=== PATIENT | female | born 2000 | race Caucasian/White ===

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

== ENCOUNTER 2024-11-06 17:17 | Emergency (ER) | payer OTHER ==
[2024-11-06 17:26] VITALS: RESP 16
--- NOTE | 2024-11-06 17:36 | ED ---
Extremity Problem HPI - General Chief complaint: Extremity Problem,Nontraumatic Stated complaint: l leg tingling Time Seen by Provider: 11/06/24 17:28 Source: patient Mode of arrival: ambulatory Limitations: no limitations - History of Present Illness Initial comments: 24-year-old female presenting with chief complaint of swelling in the left leg. Patient states that symptoms have been ongoing for about a week. She reports that she is currently sleeping in her car and she notices that it is at its worst when she wakes up in the morning. She also has some pain and tingling in the leg as well. States that it feels like the swelling is starting to come up the leg and is now in her upper thigh. She denies any chest pain or difficulty breathing. She does not take oral contraceptives. She denies any injury or trauma. She reports that 1 night she slept in a tent and was laying flat and this seemed to help her swelling more. She has having some lower back pain which is chronic for her. - Related Data Home Medications Medication Instructions Recorded Confirmed Cetirizine HCl 10 mg PO DAILY 08/12/16 08/27/17 OXcarbazepine [Trileptal] 150 mg PO BID 08/27/17 08/27/17 Omeprazole [PriLOSEC] 20 mg PO AC-BRKFST 08/27/17 08/27/17 buPROPion HCL [Wellbutrin XL] 300 mg PO DAILY 08/27/17 08/27/17 Previous Rx's Medication Instructions Recorded Ciprofloxacin HCl [Cipro] 500 mg PO Q12HR #20 tablet 08/27/17 Apixaban [Eliquis Starter Pack 5 - 10 mg PO DIRECTED 30 Days 11/06/24 (for VTE)] #1 each Allergies Allergy/AdvReac Type Severity Reaction Status Date / Time montelukast [From Singulair] Allergy Unknown Verified 12/27/19 15:55 Penicillins Allergy Rash/Hives Verified 12/27/19 15:55 prednisone Allergy Rapid Verified 12/27/19 15:55 Heart Rate Sulfa (Sulfonamide Allergy Rash/Hives Verified 12/27/19 15:55 Antibiotics) sulfamethoxazole Allergy Rash/Hives Verified 12/27/19 15:55 [From Bactrim] trimethoprim [From Bactrim] Allergy Rash/Hives Verified 12/27/19 15:55 Review of Systems ROS Statement: Those systems with pertinent positive or pertinent negative responses have been documented in the HPI. ROS Other: All systems not noted in ROS Statement are negative. Past Medical History Past Medical History: No Reported History Additional Past Medical History / Comment(s): factor 5 History of Any Multi-Drug Resistant Organisms: None Reported Past Surgical History: No Surgical Hx Reported Additional Past Surgical History / Comment(s): toe surgery Past Psychological History: Anxiety, Depression Smoking Status: Never smoker Past Alcohol Use History: None Reported Past Drug Use History: Marijuana General Exam Limitations: no limitations General appearance: alert, in no apparent distress Head exam: Present: atraumatic, normocephalic, normal inspection Eye exam: Present: normal appearance, EOMI Neck exam: Present: normal inspection. Absent: meningismus Respiratory exam: Absent: respiratory distress Cardiovascular Exam: Present: regular rate Extremities exam: Present: normal capillary refill, pedal edema (Left-sided mild 1+) Neurological exam: Present: alert, oriented X3 Psychiatric exam: Present: normal affect, normal mood Skin exam: Present: warm, dry, normal color Course Vital Signs 11/06/24 11/06/24 17:24 19:10 Temperature 98.3 F 98.1 F Pulse Rate 88 80 Respiratory 16 16 Rate Blood Pressure 149/92 142/89 O2 Sat by Pulse 100 100 Oximetry Medical Decision Making - Medical Decision Making Was pt. sent in by a medical professional or institution (, PA, PROFILING MACHINE SET UP OPERATOR, urgent care, hospital, or [facility]...) When possible be specific @ -No Did you speak to anyone other than the patient for history (EMS, parent, family, police, friend...)? What history was obtained from this source @ -No Did you review nursing and triage notes (agree or disagree)? Why? @ -I reviewed and agree with nursing and triage notes Were old charts reviewed (outside hosp., previous admission, EMS record, old EKG, old radiological studies, urgent care reports/EKG's, [facility] records)? Report findings @ -No old charts were reviewed Differential Diagnosis (chest pain, altered mental status, abdominal pain women, abdominal pain men, vaginal bleeding, weakness, fever, dyspnea, syncope, headache, dizziness, GI bleed, back pain, seizure, CVA, palpatations, mental health, musculoskeletal)? @ -Differential Musculoskeletal Muscular strain, contusion, ligament sprain, fracture, arthritis, septic arthritis, bursitis, cellulitis, muscle spasm, nerve compression, DVT, arterial occlusion, herpes zoster, electrolyte abnormality, tumor.... This is not meant to be in all inclusive list EKG interpreted by me (3pts min.). @ -As above X-rays interpreted by me (1pt min.). @ -None done CT interpreted by me (1pt min.). @ -None done U/S interpreted by me (1pt. min.). @ -Ultrasound shows acute DVT within the mid to distal left popliteal vein and one of the proximal calf veins What testing was considered but not performed or refused? (CT, X-rays, U/S, labs)? Why? @ -None What meds were considered but not given or refused? Why? @ -None Did you discuss the management of the patient with other professionals (professionals i.e. , PA, PROFILING MACHINE SET UP OPERATOR, lab, RT, psych nurse, social media campaign manager, tax lawyer, teacher, financial aid officer, complex case manager)? Give summary @ -No Was smoking cessation discussed for >3mins.? @ -No Was critical care preformed (if so, how long)? @ -No Were there social determinants of health that impacted care today? How? (Homelessness, low income, unemployed, alcoholism, drug addiction, transportation, low edu. Level, literacy, decrease access to med. care, retirement, rehab)? @ -No Was there de-escalation of care discussed even if they declined (Discuss DNR or withdrawal of care, Hospice)? DNR status @ -No What co-morbidities impacted this encounter? (DM, HTN, Smoking, COPD, CAD, Cancer, CVA, ARF, Chemo, Hep., AIDS, mental health diagnosis, sleep apnea, morb id obesity)? @ -None Was patient admitted / discharged? Hospital course, mention meds given and route, prescriptions, significant lab abnormalities, going to OR and other pertinent info. @ -24-year-old female with history of factor V Leiden. Patient reports that she is currently homeless and sleeping in her car. She has been having swelling to the left leg for about a week. No chest pain or difficulty breathing. She is neurovascularly intact. Ultrasound positive for DVT. Patient is not currently on any blood thinners. She will be started on Eliquis, first dose of 10 mg is given here in the ER, starter pack sent to the pharmacy. She recently was assigned PCP Dr. Sauceda and will be following up with her. Educated on alarm symptoms that should prompt reevaluation. Follow-up with PCP. Report back to ER with any new or worsening symptoms. Discussed return parameters and answered all questions. Patient conveyed verbal understanding and agreed to the plan. I discussed this case in detail with my attending Dr. Paredes Undiagnosed new problem with uncertain prognosis? @ -No Drug Therapy requiring intensive monitoring for toxicity (Heparin, Nitro, Insulin, Cardizem)? @ -No Were any procedures done? @ -No Diagnosis/symptom? @ -DVT Acute, or Chronic, or Acute on Chronic? @ -Acute Uncomplicated (without systemic symptoms) or Complicated (systemic symptoms)? @ -Uncomplicated Side effects of treatment? @ -No Exacerbation, Progression, or Severe Exacerbation? @ -No Poses a threat to life or bodily function? How? (Chest pain, [place], NH, pneumonia, PE, COPD, DKA, ARF, appy, cholecystitis, CVA, Diverticulitis, Homicidal, Suicidal, threat to staff... and all critical care pts) @ -There is potential for DVT to result in PE, patient is educated on signs and symptoms of PE that should prompt reevaluation Disposition Clinical Impression: Deep vein thrombosis (DVT) of lower extremity Disposition: HOME SELF-CARE Condition: Fair Instructions (If sedation given, give patient instructions): Deep Vein Thrombosis (ED) Additional Instructions: Follow-up with your PCP. Report back to ER with any new or worsening symptoms, including but not limited to chest pain, difficulty breathing, dizziness/passing out. Take your medication as prescribed Prescriptions: Apixaban [Eliquis Starter Pack (for VTE)] 5 - 10 mg PO DIRECTED 30 Days #1 each Is patient prescribed a controlled substance at d/c from ED?: No Referrals: None,Stated [Primary Care Provider] - 1-2 days Aimee Sauceda MD [STAFF PHYSICIAN] - 1-2 days Time of Disposition: 19:00
--- NOTE | 2024-11-06 18:13 | US ---
EXAMINATION TYPE: US venous doppler duplex LE LT DATE OF EXAM: 11/07/23 COMPARISON: NONE CLINICAL INDICATION: Female, 24 years old with history of swelling. pain and swelling in calf for domenico und 1.5 weeks. not on thinners no hx dvt SIDE PERFORMED: Left TECHNIQUE: The lower extremity deep venous system is examined utilizing real time linear array sonog juli with graded compression, doppler sonography and color-flow sonography. VESSELS IMAGED: Common Femoral Vein Deep Femoral Vein Greater Saphenous Vein * Femoral Vein Popliteal Vein Small Saphenous Vein * Proximal Calf Veins (* superficial vessels) Left Leg: echoes with non-compressibility seen within the mid and distal popliteal vein and 1 of the proximal calf veins. There is normal compressibility with color flow and spectral venous waveforms i nvolving the remaining visualized left lower extremity veins. IMPRESSION: Acute deep venous thrombosis within the mid to distal left popliteal vein and one of the proximal keila f veins. Findings communicated to Dr. Jone Kaba, PAC on 11/06/2024 6:[address] Stephan Odom . [facility], , 11/06/2024 6:11 PM
[2024-11-06] MEDS: APIXABAN 5 MG TAB PO STA (19:01)
[2024-11-06 19:11] VITALS: BP 142/89; PULSE 80; TEMP 98.1
== END 2024-11-06 19:57 | disposition home or self-care (01) ==
LOC: EC 17:17
DX: I82.402 Acute embolism and thrombosis of unspecified deep veins of left lower extremity (principal); Z88.0 Allergy status to penicillin; Z88.1 Allergy status to other antibiotic agents; Z88.2 Allergy status to sulfonamides; Z88.8 Allergy status to other drugs, medicaments and biological substances; Z59.00 Homelessness unspecified
CPT/HCPCS: 99284

== ENCOUNTER 2024-11-12 09:25 | Emergency (ER) | payer OTHER ==
[2024-11-12 09:33] VITALS: BP 130/85; PULSE 85; RESP 18; TEMP 97.9
[2024-11-12 10:01] LABS: Bilirubin,Urine Negative (Negative); Blood,Urine Negative (Negative); Color,Urine Colorless; Glucose,Urine (UA) Negative (Negative); Ketones,Urine Negative (Negative); Leukocyte Esterase,Urine Negative (Negative); Nitrite,Urine Negative (Negative); PH, Urine 6.0 (5.0-8.0); Protein,Urine Negative (Negative); Specific Gravity,Urine 1.007 (1.001-1.035); Urobilinogen,Urine <2.0 mg/dL (<2.0)
--- NOTE | 2024-11-12 10:06 | ED ---
Female Urogenital HPI - General Chief complaint: Urogenital Stated complaint: possible /urogenital issues Time Seen by Provider: 11/12/24 09:35 Source: patient, family, RN notes reviewed Mode of arrival: ambulatory Limitations: no limitations - History of Present Illness Initial comments: This is a 24-year-old female who presents to the emergency department for a test. Patient states that she is 3 days late on her period and would like to make sure she is not . Due to financial constraints she is not able to purchase a test at any drugstore. Denies any history of prior pregnancies. - Related Data Home Medications Medication Instructions Recorded Confirmed Cetirizine HCl 10 mg PO DAILY 08/12/16 08/27/17 OXcarbazepine [Trileptal] 150 mg PO BID 08/27/17 08/27/17 Omeprazole [PriLOSEC] 20 mg PO AC-BRKFST 08/27/17 08/27/17 buPROPion HCL [Wellbutrin XL] 300 mg PO DAILY 08/27/17 08/27/17 Previous Rx's Medication Instructions Recorded Ciprofloxacin HCl [Cipro] 500 mg PO Q12HR #20 tablet 08/27/17 Apixaban [Eliquis Starter Pack 5 - 10 mg PO DIRECTED 30 Days 11/06/24 (for VTE)] #1 each Allergies Allergy/AdvReac Type Severity Reaction Status Date / Time montelukast [From Singulair] Allergy Unknown Verified 11/12/24 09:33 Penicillins Allergy Rash/Hives Verified 11/12/24 09:33 prednisone Allergy Rapid Verified 11/12/24 09:33 Heart Rate Sulfa (Sulfonamide Allergy Rash/Hives Verified 11/12/24 09:33 Antibiotics) sulfamethoxazole Allergy Rash/Hives Verified 11/12/24 09:33 [From Bactrim] trimethoprim [From Bactrim] Allergy Rash/Hives Verified 11/12/24 09:33 Review of Systems ROS Statement: Those systems with pertinent positive or pertinent negative responses have been documented in the HPI. ROS Other: All systems not noted in ROS Statement are negative. Past Medical History Past Medical History: No Reported History Additional Past Medical History / Comment(s): factor 5 History of Any Multi-Drug Resistant Organisms: None Reported Past Surgical History: No Surgical Hx Reported Additional Past Surgical History / Comment(s): toe surgery Past Psychological History: Anxiety, Depression Smoking Status: Vaper Past Alcohol Use History: None Reported Past Drug Use History: Marijuana General Exam Limitations: no limitations General appearance: alert, in no apparent distress Head exam: Present: atraumatic, normocephalic, normal inspection Respiratory exam: Present: normal lung sounds bilaterally. Absent: respiratory distress, wheezes, rales, rhonchi, stridor Cardiovascular Exam: Present: regular rate, normal rhythm GI/Abdominal exam: Present: soft, normal bowel sounds. Absent: distended, tenderness, guarding, rebound, rigid Neurological exam: Present: alert, oriented X3, CN II-XII intact Psychiatric exam: Present: normal affect, normal mood Skin exam: Present: warm, dry, intact, normal color. Absent: rash Course Vital Signs 11/12/24 09:30 Temperature 97.9 F Pulse Rate 85 Respiratory 18 Rate Blood Pressure 130/85 O2 Sat by Pulse 99 Oximetry Medical Decision Making - Medical Decision Making This is a 24-year-old female who presents to the emergency department for a test due to a late period. Was pt. sent in by a medical professional or institution? @ -No Did you speak to anyone other than the patient for history? @ -No Did you review nursing and triage notes? @ -Yes, and I agree, it is accurate with regards to the patient's symptoms. Were old charts reviewed? @ -No Differential Diagnosis? @ -Hormone imbalance, thyroid disorder, medications, , this is not meant to be an all-inclusive list. EKG interpreted by me (3pts min.)? @ -Not obtained X-rays interpreted by me (1pt min.)? @ -Not obtained CT interpreted by me (1pt min.)? @ -Not obtained U/S interpreted by me (1pt. min.)? @ -Not obtained What testing was considered but not performed? (CT, X-rays, U/S, labs)? Why? @ -None What meds were considered but not given? Why? @ -None Did you discuss the management of the patient with other professionals? @ -No Did you reconcile home meds? @ -No Was smoking cessation discussed for >3mins.? @ -No Was critical care preformed (if so, how long)? @ -No Were there social determinants of health that impacted care today? How? (Homelessness, low income, unemployed, alcoholism, drug addiction, transportation, low edu. Level, literacy, decrease access to med. care, [facility], rehab)? @ -Low income, making her unable to purchase a test [id number], causing her to present here today. Was there de-escalation of care discussed even if they declined? (Discuss DNR or withdrawal of care, Hospice)? @ -No What co-morbidities impacted this encounter? (DM, HTN, Smoking, COPD, CAD, Canc er, CVA, Hep., AIDS, mental health diagnosis, sleep apnea, morbid obesity)? @ -None Was patient admitted / discharged? @ -Discharged. Urinalysis negative for signs of infection or other irregularities and urine test was negative. Findings reviewed with the patient. Patient discharged home in stable condition. Case discussed with ED attending Dr. Burns. Return precautions reviewed in depth, the patient is instructed to return to the emergency department with any new, worsening, or concerning symptoms. Patient verbalized understanding. Undiagnosed new problem with uncertain prognosis? @ -None Drug Therapy requiring intensive monitoring for toxicity (Heparin, Nitro, Insulin, Cardizem)? @ -None Were any procedures done? @ -None Diagnosis/symptom? @ -Encounter for test, late period. Acute, or Chronic, or Acute on Chronic? @ -Acute Uncomplicated (without systemic symptoms) or Complicated (systemic symptoms)? @ -Uncomplicated Side effects of treatment? @ -None Exacerbation, Progression, or Severe Exacerbation] @ -Not applicable Poses a threat to life or bodily function? @ -No - Lab Data Lab Results 11/12/24 11/12/24 Range/Units 09:52 09:52 Urine Color Colorless Urine Appearance Clear (Clear) Urine pH 6.0 (5.0-8.0) Ur Specific [place] 1.007 (1.001-1.035) Urine Protein Negative (Negative) Urine Glucose (UA) Negative (Negative) Urine Ketones Negative (Negative) Urine Blood Negative (Negative) Urine Nitrite Negative (Negative) Urine Bilirubin Negative (Negative) Urine Urobilinogen <2.0 (<2.0) mg/dL Ur Leukocyte Esterase Negative (Negative) Urine HCG, Qual Not Detected (Not Detectd) Disposition Clinical Impression: Encounter for test, Late period Disposition: HOME SELF-CARE Additional Instructions: Return to the emergency department with any new, worsening, or concerning symptoms. Is patient prescribed a controlled substance at d/c from ED?: No Referrals: None,Stated [REFERRING] - 1-2 days Time of Disposition: 10:24
== END 2024-11-12 10:34 | disposition home or self-care (01) ==
LOC: EC 09:25
DX: Z32.02 Encounter for pregnancy test, result negative (principal); F17.290 Nicotine dependence, other tobacco product, uncomplicated; Z88.1 Allergy status to other antibiotic agents; Z88.0 Allergy status to penicillin; Z88.2 Allergy status to sulfonamides; Z88.8 Allergy status to other drugs, medicaments and biological substances
CPT/HCPCS: 81003; 81025; 99283